=== PATIENT | female | born 1980 | race Caucasian/White ===

== ENCOUNTER 2017-06-19 20:11 | Emergency (ER) | payer MEDICAID ==
[2017-06-19] MEDS ORDERED: Acetaminophen/oxyCODONE 325-5 MG Tab PO ONE (20:12)
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
[2017-06-19] MEDS ORDERED: Acetaminophen/oxyCODONE 325-5 MG Tab ONE (22:15)
[2017-06-19 22:19] VITALS: BP 120/68
== END 2017-06-19 22:20 | disposition home or self-care (01) ==
LOC: DL.ED 20:11
DX: K08.89 Other specified disorders of teeth and supporting structures (principal); F17.210 Nicotine dependence, cigarettes, uncomplicated; Z88.1 Allergy status to other antibiotic agents; Z88.5 Allergy status to narcotic agent; Z88.0 Allergy status to penicillin
CPT/HCPCS: 99282; A9270